=== PATIENT | female | born 1945 | race Caucasian/White ===

== ENCOUNTER 2020-12-30 23:25 | Inpatient (IN) | payer OTHER ==
[2020-12-30 23:58] LABS: #Eosinphils 0.1 thou/uL (0.0-0.7); #Lymphocytes 1.1 thou/uL (1.20-3.40); #Monocytes 0.8 thou/uL (0.11-0.59); #Neutrophils 8.3 thou/uL (1.40-6.50); %Basophils 0.4 % (0.0-1.0); %Eosinophils 0.8 % (0.0-10.0); %Lymphocytes 10.5 % (21.0-51.0); %Monocytes 8.1 % (0.0-10.0); %Neutrophils 80.2 % (42.0-75.0); Hemoglobin 14.4 g/dL (12.0-16.0); Mean Corpuscular HGB CONC 33.8 g/dL (32.0-36.0); Mean Corpuscular Hemoglobin 33.8 pg (27.0-31.0); Mean Platelet Volume 8.5 fL (7.4-10.4); Platelet Count 143 thou/uL (130-400); RBC Distribution Width 12.4 % (11.5-14.5); Red Blood Cell (RBC) Count 4.27 mill/uL (4.20-5.40); White Blood Cell (WBC) Count 10.4 thou/uL (4.8-10.8)
[2020-12-31] MEDS ORDERED: Fentanyl 100 MCG/2 ML VIAL ONE (00:11)
[2020-12-31 00:16] LABS: ALT (SGPT) 23 U/L (8-55); AST (SGOT) 39 U/L (5-34); Albumin 4.1 g/dL (3.4-4.8); Alkaline Phosphatase 80 U/L (40-110); Anion Gap 18 mmol/L (10-20); BUN (Urea Nitrogen) 18 mg/dL (9.8-20.1); Bilirubin, Total 0.4 mg/dL (0.2-1.2); Calc. Creatinine Clearance 0 mL/min (70-130); Calcium 10.2 mg/dL (7.8-10.44); Carbon Dioxide 18 mmol/L (23-31); Chloride 108 mmol/L (98-107); Globulin 3.6 g/dL (2.4-3.5); Glucose 119 mg/dL (83-110); Potassium 4.6 mmol/L (3.5-5.1); Protein, Total 7.7 g/dL (5.8-8.1); Sodium 139 mmol/L (136-145)
[2020-12-31] MEDS ORDERED: hydrALAZINE 20 MG/ML VIAL SLOW IVP PRN (02:28)
[2020-12-31] MEDS ORDERED: Dextrose 50% Abboject 50 ML SYRINGE SLOW IVP PRN (02:28)
[2020-12-31] MEDS ORDERED: Ondansetron PF 4 MG/2 ML Vial IVP PRN (02:28)
[2020-12-31] MEDS ORDERED: Ondansetron ODT 4 MG TAB PO PRN (02:28)
[2020-12-31] MEDS ORDERED: Dextrose 5% in Water 1,000 ML IV PRN (02:28)
[2020-12-31] MEDS ORDERED: Sodium Chloride 0.9% 1,000 ML IV SCH ×2 (02:30→11:00)
[2020-12-31] MEDS ORDERED: Cyclobenzaprine 10 MG TAB PO PRN (02:34)
[2020-12-31] MEDS ORDERED: traMADol HCl 50 MG TAB PO PRN ×2 (02:34)
[2020-12-31 03:05] LABS: Lactic Acid 1.4 mmol/L (0.5-2.2)
[2020-12-31] MEDS: Acetaminophen 325 MG TAB PO SCH ×4 (05:37→22:09)
[2020-12-31] MEDS: Ibuprofen 200 MG TAB PO SCH ×3 (05:37→22:08)
[2020-12-31] MEDS ORDERED: Ibuprofen 800 MG TAB PO SCH (06:00)
[2020-12-31] MEDS ORDERED: Levothyroxine Sodium 50 MCG TAB PO SCH (08:00)
[2020-12-31] MEDS: Famotidine 20 MG TAB PO SCH ×2 (08:49→20:37)
[2020-12-31] MEDS: Polyethylene Glycol 3350 17 GM Packet PO SCH (08:53)
[2020-12-31] MEDS: Senokot S 8.6-50 MG TAB PO SCH ×2 (08:53→20:38)
[2020-12-31 09:03] LABS: Troponin I 0.018 ng/mL (< 0.028)
[2020-12-31] MEDS ORDERED: Iopamidol-370 76% 500 ML 1 ML ONE (10:45)
[2020-12-31 14:29] LABS: SARS-CoV-2 PCR by NAA Not Detected (NotDetected)
[2020-12-31] MEDS ORDERED: Sodium Bicarbonate 50 MEQ in Dextrose 5% in Water 1,000 ML IV SCH (17:00)
[2020-12-31 22:21] LABS: Magnesium 1.8 mg/dL (1.6-2.6)
[2021-01-01] MEDS: Ibuprofen 200 MG TAB PO SCH (06:03)
[2021-01-01] MEDS: Acetaminophen 325 MG TAB PO SCH (06:04)
[2021-01-01] MEDS: Levothyroxine Sodium 50 MCG TAB PO SCH (06:04)
[2021-01-01] MEDS: Senokot S 8.6-50 MG TAB PO SCH ×2 (08:46→20:16)
[2021-01-01] MEDS: Famotidine 20 MG TAB PO SCH (08:47)
[2021-01-01] MEDS: Polyethylene Glycol 3350 17 GM Packet PO SCH (08:47)
[2021-01-01 09:54] LABS: Anion Gap 12 mmol/L (10-20); BUN (Urea Nitrogen) 12 mg/dL (9.8-20.1); CK (CPK) 1845 U/L (29-168); Calc. Creatinine Clearance 97 mL/min (70-130); Carbon Dioxide 26 mmol/L (23-31); Chloride 107 mmol/L (98-107); Glucose 114 mg/dL (83-110); Magnesium 1.8 mg/dL (1.6-2.6); Phosphorus 2.3 mg/dL (2.3-4.7); Potassium 4.5 mmol/L (3.5-5.1); Sodium 140 mmol/L (136-145)
[2021-01-01] MEDS: Acetaminophen 500 MG TAB PO SCH ×2 (12:23→18:24)
[2021-01-02 04:40] VITALS: BP 159/97; TEMP 98.3; BMI 32.9
[2021-01-02] MEDS: Levothyroxine Sodium 50 MCG TAB PO SCH (05:53)
[2021-01-02] MEDS: Acetaminophen 500 MG TAB PO SCH ×3 (05:53→11:55)
[2021-01-02 06:39] LABS: Anion Gap 14 mmol/L (10-20); BUN (Urea Nitrogen) 10 mg/dL (9.8-20.1); CK (CPK) 1316 U/L (29-168); Calc. Creatinine Clearance 103 mL/min (70-130); Calcium 8.9 mg/dL (7.8-10.44); Carbon Dioxide 22 mmol/L (23-31); Chloride 111 mmol/L (98-107); Glucose 91 mg/dL (83-110); Potassium 4.9 mmol/L (3.5-5.1); Sodium 142 mmol/L (136-145)
[2021-01-02] MEDS: Senokot S 8.6-50 MG TAB PO SCH (08:40)
[2021-01-02] MEDS: Polyethylene Glycol 3350 17 GM Packet PO SCH ×2 (08:40→11:55)
== END 2021-01-02 14:45 | disposition home or self-care (01) | DRG 565 ==
LOC: ERS 23:25 → 2SW 12-31 02:28 → OBSVTOIN 01-01 15:23 → SURG B 01-01 16:22
PROVIDERS: ADMIT Surgery; ATTEND Surgery
DX: T79.6XXA Traumatic ischemia of muscle, initial encounter (principal); E87.2 Acidosis; E03.9 Hypothyroidism, unspecified; M32.9 Systemic lupus erythematosus, unspecified; I08.1 Rheumatic disorders of both mitral and tricuspid valves; S20.219A Contusion of unspecified front wall of thorax, initial encounter; V43.62XA Car passenger injured in collision with other type car in traffic accident, initial encounter; Y92.410 Unspecified street and highway as the place of occurrence of the external cause; Z90.49 Acquired absence of other specified parts of digestive tract; Z85.820 Personal history of malignant melanoma of skin
CPT/HCPCS: 36415; 36416; 70450; 71045; 71260; 72125; 74177; 80048; 80053; 82550; 83605; 83735; 84100; 84443; 84484; 85025; 86900; 86901; 93005; 93306; G0378; G0390; J3010; J7050; J7070; Q9967; U0003; U0005